=== PATIENT | male | born 1955 | race Caucasian/White ===

== ENCOUNTER 2017-03-15 05:49 | Inpatient (IN) ==
--- NOTE | 2017-03-02 11:20 | EKG Report ---
Stationary ECG Study 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
[2017-03-02 11:31] LABS: Basophils # 0.1 10*3/uL (0.0-0.2); Basophils % 0.9 % (0.0-0.8); Eosinophils # 0.2 10*3/uL (0.0-0.87); Eosinophils % 2.5 % (0.00-10.9); Hematocrit 42.7 VOL% (42.0-52.0); Hemoglobin 15.2 GM/DL (14.0-18.0); Immature Granulocytes % 0.3 %; Immature Granulocytes Absolute 0.02 #; Lymphocytes # 2.4 10*3/uL (1.4-4.0); Lymphocytes % 30.4 % (21.2-54.2); Mean Corpuscular HGB Conc 35.6 GM/DL (32-36); Mean Corpuscular Hemoglobin 30 PG (27-34); Mean Corpuscular Volume 84.6 FL (87-102); Monocytes % 12.5 % (1.7-12.7); Neutrophils # 4.1 10*3/uL (1.4-7.4); Neutrophils % 53.4 % (38.7-73.9); Platelet Count 244 T/CUMM (130-400); Red Blood Count 5.05 MC/CUMM (3.8-5.5); Red Cell Distribution Width 12.9 % (9.3-17.3); White Blood Count 7.7 T/CUMM (4-12)
[2017-03-02 11:39] LABS: Apearance,Urine CLEAR (Clear); Bilirubin,Urine Negative (Negative); Blood, Urine Negative (Negative); Glucose,Urine (UA) Negative (Negative); Ketones,Urine Negative (Negative); Mucus,Urine Occasional /LPF (Occasional); Nitrite,Urine Negative (Negative); Protein,Urine Negative; RBC,Urine <1 /HPF (0-4); Urine Color Yellow (Yellow); Urine Specific Gravity 1.005 (1.001-1.035); Urine Urobilinogen < 2.0 EU/DL (0.2-1.0); WBC,Urine <1 /HPF (0-6)
[2017-03-02 12:18] LABS: Calcium 9.4 MG/DL (8.5-10.1); Osmolality,Calculated 278.4 MOS/KG (273-304); Potassium 3.9 MMOL/L (3.5-5.1)
[2017-03-15] MEDS ORDERED: ALVIMOPAN 12 MG CAPSULE PO ONE (06:00)
[2017-03-15] MEDS ORDERED: cefTRIAXone 1,000 MG in SODIUM CHLORIDE 0.9% 100 ML IV ONE (06:00)
[2017-03-15] MEDS ORDERED: LORazepam 1 MG TABLET PO ONE (06:14)
[2017-03-15] MEDS ORDERED: FAMOTIDINE 20 MG TABLET PO ONE (06:14)
[2017-03-15] MEDS: LACTATED RINGERS 1,000 ML IV SCH (06:15)
[2017-03-15] MEDS ORDERED: ROCURONIUM 100 MG/10 ML VIAL IV ONE (06:30)
[2017-03-15] MEDS ORDERED: ONDANSETRON 4 MG/2 ML VIAL ONE (06:30)
[2017-03-15] MEDS ORDERED: LIDOCAINE 100 MG/5 ML SYRINGE ONE (06:30)
[2017-03-15] MEDS ORDERED: LORazepam 1 MG TABLET ONE (06:36)
[2017-03-15] MEDS ORDERED: FAMOTIDINE 20 MG TABLET ONE (06:36)
[2017-03-15] MEDS ORDERED: cefTRIAXone 1,000 MG VIAL ONE (06:37)
[2017-03-15] MEDS ORDERED: SODIUM PHOSPHATE ENEMA 133 ML BOTTLE RECTAL ONE (06:37)
[2017-03-15] MEDS ORDERED: SODIUM CHLORIDE 0.9% 100 ML IV ONE (06:37)
[2017-03-15] MEDS ORDERED: ALVIMOPAN 12 MG CAPSULE ONE (06:37)
[2017-03-15] MEDS ORDERED: SODIUM PHOSPHATE ENEMA 133 ML BOTTLE RECTAL STA (06:48)
[2017-03-15 07:48] LABS: Apearance,Urine Slightly Hazy (Clear); Bilirubin,Urine Negative (Negative); Blood, Urine Large mg/dL (Negative); Glucose,Urine (UA) Negative (Negative); Ketones,Urine Negative (Negative); Mucus,Urine Occasional /LPF (Occasional); Nitrite,Urine Negative (Negative); Protein,Urine 30 MG/DL; RBC,Urine 1250 /HPF (0-4); Urine Color Yellow (Yellow); Urine Specific Gravity 1.006 (1.001-1.035); Urine Urobilinogen < 2.0 EU/DL (0.2-1.0); WBC,Urine 5 /HPF (0-6)
[2017-03-15] MEDS ORDERED: ONDANSETRON 4 MG/2 ML VIAL IV PRN (11:39)
[2017-03-15] MEDS ORDERED: LACTULOSE 20 GM/30 ML UDCUP PO PRN ×2 (11:39→12:47)
--- NOTE | 2017-03-15 11:53 | Anesthesia Post-Op ---
Anesthesia Post OP - Post Ansesthetic Evaluation Patient seen in post op: Yes Resp: within normal limits CV: within normal limits Mental: within normal limits Temp: within normal limits [id number]-Sd-[id number]: within normal limits Nausea and Vomiting: within normal limits Pain: within normal limits
[2017-03-15] MEDS ORDERED: DIAZEPAM 5 MG TABLET PO SCH ×2 (12:00→13:00)
[2017-03-15] MEDS ORDERED: HYDROmorphone PCA 30 MG/30 ML SYRINGE IV SCH (12:00)
[2017-03-15] MEDS ORDERED: SEVOFLURANE 1 UNIT/15 MINUTE INH ONE (12:00)
[2017-03-15] MEDS ORDERED: DEXTROSE 5% NACL 0.45% 1,000 ML IV SCH (12:00)
[2017-03-15] MEDS ORDERED: MIDAZOLAM 2 MG/2 ML VIAL ONE (12:00)
[2017-03-15] MEDS ORDERED: ACETAMINOPHEN 1,000 MG/100 ML VIAL IV ONE (12:01)
[2017-03-15] MEDS ORDERED: LACTATED RINGERS 3,000 ML IV ONE (12:01)
--- NOTE | 2017-03-15 12:11 | Operative Note ---
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 I discussed robotic assisted laparoscopic radical prostatectomy at length and in detail. Risks, complications, outcomes, sequelae , prognosis and alternative therapy was thoroughly discussed. Patient understood this and agreed to proceed. Patient is brought to the operative suite placed on the table in the securing pad and given a general endotracheal anesthetic and then secured to the table with low lithotomy position in the usual manner for robotic prostatectomy. 22 [place]e Apodaca was placed in the bladder and left to gravity. Patient is prepared and draped in usual sterile manner. Formal timeout was performed. Small incision created above the umbilicus. The abdominal wall tented up with towel clamps Veress needle was used to beckford the abdominal wall into the peritoneal cavity. This is confirmed with the to click and saline drop test. Pneumoperitoneum was obtained. 8 mm trocar was then placed. Camera was then inserted and the intra-abdominal contents are examined. There is some adhesions from the left colon to left sidewall and there is no bowel or vascular injury with access. 8 mm ports put lateral to the camera on each side at least 8 cm and another 8 mm ports put to the right laterally of the third arm on the right for fourth arm usage. An incision is then created about 4 inches above the #1 and #2 ports on the left in the left upper quadrant. This is about 3 cm. This is carried down through the muscles in the department and the pneumoperitoneum was then removed. Gelpoint Mini was then placed in this wound. And the pneumoperitoneum was obtained. Attention was then directed posteriorly. Incision was done in the posterior cul -de-sac and vas deferens were then isolated clipped and divided. Seminal vesicles were dissected out of the bed. Cautery was used sparingly as this is a nerve sparing. A window in Denonvilliers's fascia is then created. Attention was directed to the bladder flap. His median umbilical ligaments are poorly developed and he has had bilateral hernia repairs which caused a fair amount of scarring. These were divided and the bladder flap was developed and dropped in the pelvis. Dissection was continued on both sides of the prostate the endopelvic fascia. The endopelvic fascia was incised dissected up to the puboprostatic ligaments. This revealed a basic fan-shaped ligament that is continuing from one side to the next there was a large superficial dorsal vein. The vessel sealer was used to seal this and divided. The the ligament was dissected towards the midline on both sides to make it a small as I could. #1 Vicryl was used to then ligate the dorsal venous complex. Due to what I think, the hernias the bladder was actually over the top of the prostate and this had to be dissected down to the prostatic vesicular junction. This was then incised and dissection was continued down to the bladder neck which was open. Bladder was drained. Apodaca catheter was deflated and pulled up and held with the fourth arm and the posterior bladder neck was incised. Anterior pedicles were taken down and hemoclipped and divided. Posterior lateral pedicles were taken down hemoclipped and divided. The neurovascular bundle on both sides was dissected off. His fascia was surprisingly very thin. But this was done from the base of the bladder to the urethra. Seminal vesicles and vasa deferentia were then pulled up and the remaining pedicles were taken down with clips and divided. Dissection was continued towards the apex. There was a few small veins posteriorly that were coagulated with bipolar cautery. Attention was then directed to the apex. Dorsal vein was divided dissection continued sharply down to the urethra. The neurovascular bundles were dissected off sharply away from the urethra and the urethra was then divided. Apodaca catheter was pulled back the posterior urethra was then divided remaining small attachments were divided sharply the prostate was freed up. Prostate was associated with seminal vesicles were then placed in specimen bag. No dissection is were then performed. We began on the right side with adventitia the external iliac vein was entered the alexander tissue was swept in the obturator fossa. The obturator nerve was identified and kept in view at all times and not injured. A similar procedure was begun on the left side however there was also fair amount of small veins and may be scar but more dissected the more bleeding I had was fearful of entering the external iliac vein so at this point I put some FloSeal in a band in the left node dissection. The anastomosis was then performed. The fourth arm was used to approximate the bladder neck to the urethra at. A 2-0 Vicryl was used to approximate the posterior urethral plate to the posterior bladder neck. Anastomotic suture was then performed with 3 oh joe suture beginning outside in at 6:00 on both the urethra and the bladder neck and then running up from the 5 to 1:00 and 7:00 to 11 o'clock position. A new 22 Sen[place]alese all silicone Paodaca was inserted and the anastomotic suture was tied. The catheter was irrigated and this was a watertight anastomosis. Patient was laying flat and the pneumoperitoneum was released and the ports were removed. The mini gel point was opened up and then removed and the specimen bag containing the prostate and seminal vesicles were then removed from the patient sent for pathologic examination. These this wound was then closed with a running 0 Monocryl. All wounds were then irrigated and drained and hemostasis checked and the skin was closed in all wounds with skin clips. Sterile dressings were applied. Just prior to transfer the nurse called me back to the room and points out there is a "hole" in his urethra on the right side at about the 7 o'clock position. With examination of this with loops this is clearly a fistula. This is well-established and this is not something that happened during this procedure. I asked Dr. Momo Garcia to come visualize this as this is his patient and he agreed that this was an established fistula and he recommended that nothing be done. And I agree with that. At this point procedure terminated he is awakened general anesthesia and sent to the recovery room in stable condition. All sponge, needle enhancement counts correct 2. Anesthesia: GETA Surgeon / Physician: Sunil Fernandez Estimated blood loss: other (100cc) Specimens: other (Prostate with associated seminal vesicles, right pelvic lymph nodes) Condition: stable Disposition: PACU Results - Labs CBC & BMP: 03/02/17 11:22 03/02/17 11:22 Discharge Plan - Discharge Medications No Action Meloxicam [Mobic] 7.5 mg PO DAILY Zolpidem Tartrate [Ambien] 10 mg PO BEDTIME Cyclobenzaprine [Flexeril] 10 mg PO BEDTIME Diltiazem Cd Cap [Cardizem CD] 180 mg PO DAILY Losartan Potassium 50 mg PO DAILY Diclofenac 1% Gel [Voltaren 1% Gel] 1 applic TOP DAILY PRN PRN Reason: Itching Flecainide Acetate 50 mg PO BID HYDROcodone/ACETAMIN 7.5-325 [[place] 7.5-325] 1 tablet PO Q4H #20 tablet Aspirin 81 mg PO DAILY Diazepam Tab [Valium Tab] 5 mg PO DIRECTED Citalopram [CeleXA] 20 mg PO BEDTIME - Follow Up or Referral - Forms/Instructions
[2017-03-15] MEDS ORDERED: HYDROmorphone PCA 30 MG/30 ML SYRINGE IV ONE (12:23)
--- NOTE | 2017-03-15 13:31 | Urology Progress Note ---
Urology - PN: Subj Interval history: Postoperative check. Patient is awake and alert. Urine is bloody as expected. Vital signs are stable. Patient is stable. Exam - Constitutional Vitals: Period Temp Pulse Resp BP Sys/Brennan Pulse Ox Last 24 Hr 97.5 F-98.5 F 64-80 16-20 92-134/52-80 93-98 Results - Labs CBC & BMP: 03/02/17 11:22 03/02/17 11:22
[2017-03-15] MEDS: DEXTROSE 5% NACL 0.45% 1,000 ML IV SCH ×2 (13:51→23:15)
[2017-03-15] MEDS ORDERED: SOLIFENACIN 5 MG TABLET PO SCH (15:00)
[2017-03-15] MEDS ORDERED: ALVIMOPAN 12 MG CAPSULE PO SCH (21:00)
[2017-03-15] MEDS ORDERED: CYCLOBENZAPRINE 10 MG TABLET PO SCH (21:00)
[2017-03-15] MEDS ORDERED: FLECAINIDE 50 MG TABLET PO SCH (21:00)
[2017-03-15] MEDS ORDERED: CITALOPRAM 20 MG TABLET PO SCH (21:00)
[2017-03-15] MEDS ORDERED: NON-FORMULARY MEDICATION (Zolpidem Tartrate [Ambien] 10 MG) PO SCH (21:00)
[2017-03-15] MEDS: ZALEPLON 5 MG CAPSULE PO SCH (21:28)
[2017-03-15] MEDS: ALVIMOPAN 12 MG CAPSULE PO SCH (21:28)
[2017-03-15] MEDS: CYCLOBENZAPRINE 10 MG TABLET PO SCH (21:28)
[2017-03-15] MEDS: FLECAINIDE 50 MG TABLET PO SCH (21:28)
[2017-03-15] MEDS: CITALOPRAM 20 MG TABLET PO SCH (21:28)
[2017-03-16 05:45] LABS: Basophils # 0.1 10*3/uL (0.0-0.2); Basophils % 0.5 % (0.0-0.8); Eosinophils # 0.1 10*3/uL (0.0-0.87); Eosinophils % 0.5 % (0.00-10.9); Hematocrit 37.1 VOL% (42.0-52.0); Hemoglobin 12.4 GM/DL (14.0-18.0); Immature Granulocytes % 0.5 %; Immature Granulocytes Absolute 0.05 #; Lymphocytes % 18.4 % (21.2-54.2); Mean Corpuscular HGB Conc 33.4 GM/DL (32-36); Mean Corpuscular Hemoglobin 29 PG (27-34); Mean Corpuscular Volume 87.5 FL (87-102); Mean Platelet Volume 9.9 FL (9.6-12.0); Monocytes # 1.2 10*3/uL (0.11-0.8); Monocytes % 11.2 % (1.7-12.7); Neutrophils # 7.6 10*3/uL (1.4-7.4); Neutrophils % 68.9 % (38.7-73.9); Platelet Count 181 T/CUMM (130-400); Red Blood Count 4.24 MC/CUMM (3.8-5.5)
[2017-03-16 06:14] LABS: Calcium 7.8 MG/DL (8.5-10.1); Osmolality,Calculated 280.1 MOS/KG (273-304); Potassium 3.4 MMOL/L (3.5-5.1)
[2017-03-16] MEDS ORDERED: DILTIAZEM CD 180 MG CAPSULE PO SCH (09:00)
[2017-03-16] MEDS: SOLIFENACIN 5 MG TABLET PO SCH (09:07)
[2017-03-16] MEDS: ALVIMOPAN 12 MG CAPSULE PO SCH ×2 (09:07→20:41)
[2017-03-16] MEDS: FLECAINIDE 50 MG TABLET PO SCH ×2 (09:08→20:41)
[2017-03-16] MEDS: DILTIAZEM CD 180 MG CAPSULE PO SCH (09:08)
[2017-03-16] MEDS: DEXTROSE 5% NACL 0.45% 1,000 ML IV SCH (09:35)
[2017-03-16] MEDS: LACTATED RINGERS 1,000 ML IV SCH (09:35)
[2017-03-16] MEDS ORDERED: oxyCODONE/ACETAMINOPHEN 5-325 MG TABLET PO PRN (11:41)
--- NOTE | 2017-03-16 12:24 | Pathology Report from [facility] ---
[facility] ACCESSION # : [id number] PATIENT NAME : Suresh Brown ORDERING DR : BLANCHE CRABTREE MD CLINICAL HX: Prostate cancer POST-OP DX: Same SPECIMEN INFO: #1 Right obturator node #2 Prostate GROSS DESCRIPTION: Received in formalin in two parts labeled:#1 SURESH BROWN & R OBT NODE is a portion of adipose tissue measuring 4.0 x 2.0 cm. Shopping Inspector sections are submitted in cassette #1.#2 SURESH BROWN & PROSTATE is a 42 gm prostate measuring 4.3 x 5.0 x 4.0 cm. The seminal vesicles measure 4.3 x 2.5 cm in aggregate. The serosa is shaggy red dixon with the right half inked black and the left half blue. The cut surfaces are pink dixon and nodular. Sections submitted 2A-Apical margin, 2B-[place] margin, 2C-Seminal vesicle margin, 2D-2H-RT apex to base, 2I-2M-LT apex to base. DIAGNOSIS FOR SURESH BROWN: PROSTATE, RADICAL PROSTATECTOMY (4.3 x 5 x 4 cm, 42 gm): TYPE: Adenocarcinomaa, acinar type GRADE: Primary Pattern Grade 3 ; Secondary Pattern Grade 4; Total Geovanna Score 7. GEOVANNA GRADE GROUP: 2(3+4= 7) PERCENTAGE OF PATTERN 4 in GEOVANNA SCORE 3+4=7 CANCER:40% TUMOR QUANTITATION : Percentage of prostate involved by tumor 30; Dominant nodule = 10mm. MARGINS : Margins uninvolved by invasive carcinoma EXTRAPROSTATIC EXTENSION: Not Identified SEMINAL VESICLE INVASION: Not identified URINARY BLADDER NECK INVASION: Not identified. LYMPH-VASCULAR INVASION: Not identified/Present/ Indeterminate. PERINEURAL INVASION: Present. LYMPH NODES: One benign (rt) obturator node AJCC PATHOLOGIC STAGE: IIB ([id number]) COLLECTED DATE: 03/15/2017 [facility] REPORT DATE: 03/16/2017 ELECTRONICALLY SIGNED BY: Wai Ochoa III, M.D. 03/16/2017 - 11:15:19 [facility]
[2017-03-16] MEDS: POLYETHYLENE GLYCOL POWDER 17 GM PACK PO SCH (13:48)
[2017-03-16] MEDS: CITALOPRAM 20 MG TABLET PO SCH (20:41)
[2017-03-16] MEDS: CYCLOBENZAPRINE 10 MG TABLET PO SCH (20:41)
[2017-03-16] MEDS: ZALEPLON 5 MG CAPSULE PO SCH (20:41)
--- NOTE | 2017-03-17 09:04 | Discharge Summary ---
Diagnosis - Discharge Diagnosis (1) Carcinoma of prostate Status: Acute (2) Urethrocutaneous fistula Status: Acute Specialty Discharge - Follow Up or Referrals Follow up with: Sunil Fernandez MD [Physician] - (follow up the week of April 03) Discharge Plan - Discharge Data Condition at Discharge: Stable Discharge Diet: advance to your usual diet Activity: no lifting, other (Walking on flat ground is encouraged) Hygiene: no restrictions Weight Bearing at Discharge: full weight bearing Driving: not until seen by doctor Contact your physician if you experience:: fever over 101, Bleeding, pain uncontrolled by pain medications - Discharge Medications New oxyCODONE/ACETAMINOPHEN 5-325 [Percocet 5-325] 1 - 2 tablet PO Q4H PRN tablet PRN Reason: Pain Moderate (4-7) Solifenacin [Vesicare] 5 mg PO DAILY tablet Continue Zolpidem Tartrate [Ambien] 10 mg PO BEDTIME Cyclobenzaprine [Flexeril] 10 mg PO BEDTIME Diltiazem Cd Cap [Cardizem CD] 180 mg PO DAILY Losartan Potassium 50 mg PO DAILY Flecainide Acetate 50 mg PO BID Baclofen 1 tablet PO TID PRN PRN Reason: Muscle Spasm Diazepam Tab [Valium Tab] 5 mg PO DIRECTED Citalopram [CeleXA] 20 mg PO BEDTIME Discontinued Meloxicam [Mobic] 7.5 mg PO DAILY Diclofenac 1% Gel [Voltaren 1% Gel] 1 applic TOP DAILY PRN PRN Reason: Itching HYDROcodone/ACETAMIN 7.5-325 [[place] 7.5-325] 1 tablet PO Q4H #20 tablet Aspirin 81 mg PO DAILY - Follow Up or Referral Follow Up: Sunil Fernandez MD [Physician] - (follow up the week of April 03) - Forms/Instructions Instructions: Atrial Fibrillation (DC), Chronic Hypertension (DC), Robot Assisted Laparoscopic Prostatectomy (DC) Exam - Constitutional Vitals: Period Temp Pulse Resp BP Sys/Brennan Pulse Ox Last 24 Hr 97.2 F-99.0 F 66-80 16-18 115-130/64-71 93-98 DS: Provider Date of admission: 03/15/17 05:49 Primary care physician: Shon Gallagher DO Attending physician on admission: Sunil Fernandez MD Discharging clinician: Sunil Fernandez MD
[2017-03-17] MEDS: DILTIAZEM CD 180 MG CAPSULE PO SCH (09:18)
[2017-03-17] MEDS: SOLIFENACIN 5 MG TABLET PO SCH (09:19)
[2017-03-17] MEDS: FLECAINIDE 50 MG TABLET PO SCH (09:19)
[2017-03-17] MEDS: ALVIMOPAN 12 MG CAPSULE PO SCH (09:19)
[2017-03-17] MEDS: POLYETHYLENE GLYCOL POWDER 17 GM PACK PO SCH (09:19)
[2017-03-17 11:21] VITALS: BP 161/79
== END 2017-03-17 11:25 | disposition home or self-care (01) | DRG 707 ==
LOC: N.SDSINP → N.OR 05:49 → N.SDSINP 05:50 → EDSTATUS 07:30 → N.5E 11:39
PROVIDERS: ADMIT Urology; ATTEND Urology